=== PATIENT | female | born 1960 | race Caucasian/White ===

== ENCOUNTER 2021-12-16 05:37 | Outpatient (CLI) | payer BC ==
[~2021-12-16] VITALS: Ht 165.1 cm; Wt 86.2 kg
[~2021-12-16 05:37] MED LIST: CITRACAL; FEXO1TAB40 PO; LANS30CA43 PO; LEVO88TA54 PO; OMEG-160 PO; PREMARIN
== END 2021-12-16 11:16 | disposition home or self-care (01) ==
LOC: PREOP 05:37
PROVIDERS: ATTEND Surgery
DX: Z01.818 Encounter for other preprocedural examination (principal)

== ENCOUNTER 2021-12-23 09:10 | Day surgery (SDC) | payer BC ==
--- NOTE | 2021-12-16 16:08 | HISTORY AND PHYSICAL ---
DATE OF SERVICE: PROCEDURE DATE: 12/23/2021. ATTENDING PRIMARY CARE PHYSICIAN: Lona Palmer DO HISTORY: The patient is a 61-year-old female who is known to us in the past. She was seen in 07/2016 for a colonoscopy and at that time was found to have a stage I external and internal hemorrhoids as well as small proximal rectal polyp that was 2 mm in size and was biopsied and consistent with a hyperplastic polyp. The remainder of the colon was normal. She did have a colonoscopy in 2009 with two other benign polyps of the colon. On today's visit, she reports that she is again in need of a screening colonoscopy. Her last colonoscopy was 6 years ago and she denies any family history of any colon cancer as well as no blood in her stool. She denies any diarrhea or constipation as well as no abdominal pain, but does report a history of irritable bowel syndrome; however, this appears to be under control. MEDICAL HISTORY: Irritable bowel syndrome, anxiety, depression, gastroesophageal reflux disease, hypothyroidism. PAST SURGICAL HISTORY: Total hysterectomy 2003, laparoscopic cholecystectomy 2008, excision of the chest cyst 2007, pilonidal cystectomy in 1974, heel spur removed 2009, knee arthroscopy and repair of meniscus 2020. ALLERGIES: KETOCONAZOLE, PENICILLIN, TETRACYCLINE, SULFA, STATINS, GEMFIBROZIL. MEDICATIONS: Magnesium, Flonase, Melody, multivitamin, Citrucel, fish oil, probiotic, Protonix 40 mg daily, paroxetine 10 mg daily, levothyroxine 100 mcg daily, Premarin 0.625 mg. SOCIAL HISTORY: Previous for tobacco smoke, quit in 1978 for 1-pack-year. Social for alcohol. FAMILY HISTORY: Mother, lung cancer. Paternal grandfather, lung cancer. Brother, hypertension. VITAL SIGNS: Blood pressure is 124/85. Current weight is 194.5 pounds at 5 feet 5 inches. REVIEW OF SYSTEMS: This is a well-nourished female, in no acute distress. She is not experiencing any shortness of breath or difficulty breathing. No chest pain, palpitations or diaphoresis. No nausea, vomiting or abdominal pain. No diarrhea or constipation. No red blood per rectum. No dark tarry stools. No fever or chills. No recent inadvertent weight loss. All other review of systems negative. PHYSICAL EXAMINATION: CHEST: Clear. Good breath sounds bilaterally. HEART: Regular, no murmurs. EXTREMITIES: No lower extremity edema. Negative Homans sign. HEENT: No scleral icterus. NECK: No cervical lymphadenopathy. ABDOMEN: Soft, nontender, nondistended. SKIN: Warm, dry and pink. NEUROLOGIC: Awake, alert and oriented x3. ASSESSMENT AND PLAN: A 61-year-old female with a history of colon polyps, who is in need of a screening colonoscopy. The risks and benefits of the procedure as well as the procedure and home care instructions were explained to the patient. She verbalized understanding of instructions and agreed to proceed as planned. At this time, we will proceed with scheduling her for a screening colonoscopy. Job ID: [id number] DocumentID: [id number] Dictated Date: 12/15/2021 11:31:21 Confectionery Cooker Date: 12/15/2021 12:02:49 Dictated By: CAMMIE HAWTHORNE APRN
[~2021-12-23] VITALS: Ht 165.1 cm; Wt 86.2 kg
[2021-12-23] MEDS ORDERED: LACTATED RINGERS 1,000 ML IV STA (09:11)
[2021-12-23] MEDS ORDERED: LIDOCAINE JELLY 2% 6 ML SYRINGE MM PRN (09:15)
[2021-12-23] MEDS ORDERED: LACTATED RINGERS 1,000 ML IV ONE (09:15)
[2021-12-23 09:25] VITALS: BP 139/73
[2021-12-23] MEDS ORDERED: PROPOFOL INJECTION 50 ML IV ONE (09:55)
[2021-12-23] MEDS ORDERED: MIDAZOLAM 2 MG/2 ML (VERSED) VIAL ONE (09:55)
--- NOTE | 2021-12-23 10:36 | Progress Note-Pre Operative ---
Pre-Operative Progress Note H&P Reviewed The H&P was reviewed, patient examined and no changes noted. Date Seen by Provider: Dec 23, 2021 Time Seen by Provider: 10:00 Date H&P Reviewed: Dec 23, 2021 Time H&P Reviewed: 10:00 Pre-Operative Diagnosis: screening, hx polyp CESAR ALVAREZ MD Dec 23, 2021 10:36
--- NOTE | 2021-12-23 10:37 | Discharge Inst-Surgical ---
D/C Lap Instructions-ANTONIO Follow Up Activity as tolerated High Fiber Diet 25g or more per day Avoid Alcohol, Caffeine, Spicy [place] and Acid foods. Drink 64 fluid oz or more of fluids per day. Symptoms to Report: Fever over 101 degree F, Nausea/Vomiting If any problems/questions: Contact your physician or go to Emergency Room CESAR ALVAREZ MD Dec 23, 2021 10:37
[2021-12-23] MEDS ORDERED: ONDANSETRON 4 MG (ZOFRAN) ORAL DISSOLVE TAB PO PRN (10:45)
[2021-12-23] MEDS ORDERED: ONDANSETRON 4 MG/2 ML (SDV) Z0FRAN IVP PRN (10:45)
[2021-12-23 11:10] VITALS: BP 139/80
[2021-12-23 11:15] VITALS: BP 142/76
--- NOTE | 2021-12-23 11:15 | Anesthesia-General Post-Op ---
MAC Patient Condition Mental Status/LOC: Same as Preop Cardiovascular: Satisfactory Nausea/Vomiting: Absent Respiratory: Satisfactory Pain: Controlled Complications: Absent Post Op Complications Complications None Follow Up Care/Instructions Patient Instructions None needed. Anesthesiology Discharge Order Discharge Order Patient is doing well, no complaints, stable vital signs, no apparent adverse anesthesia problems. KT BRANNON DO Dec 23, 2021 11:15
--- NOTE | 2021-12-23 11:27 | Progress Note-Post Operative ---
Post-Operative Progess Note Surgeon (s)/Field Collector (s) Surgeon CESAR ALVAREZ MD Field Collector: none Pre-Operative Diagnosis screening, hx polyp Post-Operative Diagnosis mild chronic stage 2 ext and int hemorrhoids, small HP polyp sigmoid. Procedure & Operative Findings Date of Procedure 12/23/21 Procedure Performed/Findings colonoscopy with polypectomy with hot bx forcep Anesthesia Type mac Estimated Blood Loss Estimated blood loss (mL): minimal Specimens/Packing Specimens Removed sigmoid colon CESAR ALVAREZ MD Dec 23, 2021 11:27
[2021-12-23 11:40] VITALS: BP 130/60
[2021-12-23 11:50] VITALS: BP 130/60
--- NOTE | 2021-12-23 17:40 | OPERATIVE REPORT ---
DATE OF SERVICE: 12/23/2021 ATTENDING PRIMARY CARE PHYSICIAN: Lona Palmer DO PREOPERATIVE DIAGNOSIS: Screening colonoscopy with history of colon polyp. POSTOPERATIVE DIAGNOSES: Mild chronic stage II external and internal hemorrhoids, small hyperplastic polyp of the sigmoid colon 1 to 2 mm in size. PROCEDURE: Colonoscopy with polypectomy with hot biopsy forceps. SURGEON: Cesar Alvarez MD ANESTHESIA: Monitored anesthesia care. ESTIMATED BLOOD LOSS: Minimal. FINDINGS: Same as postoperative diagnoses. DISPOSITION: The patient tolerated the procedure well. INDICATIONS: The patient is a 61-year-old female referred over to us for a screening colonoscopy. We have done previous colonoscopy on her before in 2015. She was found to have a small rectal polyp 2 mm in size, which was consistent with a hyperplastic polyp. She states that she is otherwise doing well, does not report any major issues with red blood per rectum, diarrhea nor constipation as well as no red blood per rectum nor any dark tarry stools. She also does not report any family history of colon cancer. DESCRIPTION OF PROCEDURE: The patient was brought to the endoscopy suite, laid in left lateral decubitus position. After adequate IV pain and sedative medications and monitored anesthesia care, a digital rectal examination was performed. Mild chronic stage II external and internal hemorrhoids were identified, which were not actively edematous nor inflamed and no bleeding. Normal sphincter tone was felt and there were no palpable masses. The endoscope was then intubated into the anus and rectum gently insufflated. The endoscope was then advanced through the valves of Payne of the rectum with no polyps or any neoplasms identified. Through the sigmoid colon, a small hyperplastic polyp 1 to 2 mm in size was identified, which was biopsied and destroyed using forceps and electrocautery with visualization of good hemostasis. The endoscope was then advanced through the remainder of the descending, transverse and ascending colon to the cecum, which were normal. No other lesions identified. The endoscope was then slowly withdrawn while taking a second look and suctioning of residual air with no additional findings. The patient tolerated the procedure well. The polyp was small and likely consistent with a hyperplastic polyp and if she is asymptomatic, she does not need another colonoscopy in another 10 years. We will recommend a high fiber diet with at least 25 grams of fiber daily to promote soft stools on a daily basis. Job ID: [id number] DocumentID: [id number] Dictated Date: 12/23/2021 11:15:13 Iron Setter Date: 12/23/2021 17:40:30 Dictated By: CESAR ALVAREZ MD
== END 2021-12-23 11:50 | disposition home or self-care (01) ==
LOC: ENDO 09:10
PROVIDERS: ATTEND Surgery
DX: Z12.11 Encounter for screening for malignant neoplasm of colon (principal); K63.5 Polyp of colon; K64.1 Second degree hemorrhoids; K64.4 Residual hemorrhoidal skin tags; Z87.891 Personal history of nicotine dependence; Z80.1 Family history of malignant neoplasm of trachea, bronchus and lung

== ENCOUNTER 2022-04-15 18:58 | Emergency (ER) | payer BC ==
[~2022-04-15] VITALS: Ht 165 cm; Wt 81.6 kg
[2022-04-15 19:06] VITALS: BP 142/71
--- NOTE | 2022-04-15 19:12 | ED Upper Extremity ---
General Chief Complaint: Laceration Stated Complaint: HAND INJURY Source: patient Exam Limitations: no limitations (GLENROY ROMERO) History of Present Illness Date Seen by Provider: Apr 15, 2022 Time Seen by Provider: 19:10 Initial Comments Patient is a 61-year-old female presents ED with a laceration to her left palmar hand. This occurred 30 minutes ago. She states she was cutting avocado when her knife missed the fruit hitting her left palmar hand resulting in a 1 cm laceration. She reports significant bleeding. Controlled direct pressure. Not on blood thinners. Normal active range of motion of her left index and middle finger. Laceration between the second and third metacarpal. Patient is not up-to-date on her tetanus. (GLENROY ROMERO) Allergies and Home Medications Allergies Coded Allergies: Penicillins (Verified Allergy, Unknown, 06/24/15) Wppnwaq-ITV-QkM Reductase Inhibitor (Unverified Allergy, Unknown, 12/16/21) Sulfa (Sulfonamide Antibiotics) (Unverified Allergy, Unknown, 12/16/21) Tetracyclines (Unverified Allergy, Unknown, 12/16/21) gemfibrozil (Unverified Allergy, Unknown, 12/16/21) ketoconazole (Unverified Allergy, Unknown, 12/16/21) Patient Home Medication List Home Medication List Reviewed: Yes (GLENROY ROMERO) Fexofenadine/Pseudoephedrine (Melody-D 12 Hour Tablet) 1 Each Tab.er.12h, 1 EACH PO DAILY, (Reported) Entered as Reported by: KALINA WHITFIELD on 08/01/15957 Lansoprazole (Prevacid) 30 Mg Capsule.dr, 30 MG PO DAILY, (Reported) Entered as Reported by: KALINA WHITFIELD on 08/01/15957 Levothyroxine Sodium (Levothyroxine Sodium) 88 Mcg Tablet, 88 MCG PO DAILY, (Reported) Entered as Reported by: KALINA WHITFIELD on 08/01/15957 [place]-3/Dha/Epa/Fish Oil (Fish Oil 1,000 mg Softgel) 1 Each Capsule, 1 EACH PO HS, (Reported) Entered as Reported by: KALINA WHITFIELD on 08/01/15957 [Citracal] , (Reported) Entered as Reported by: KALINA WHITFIELD on 08/01/15957 [Premarin] , (Reported) Entered as Reported by: KALINA WHITFIELD on 08/01/15957 Review of Systems Constitutional: No chills, No diaphoresis, No malaise, No weakness EENTM: No blurred vision, No double vision Respiratory: No cough, No short of breath Cardiovascular: No chest pain, No edema, No palpitations Gastrointestinal: No abdominal pain, No diarrhea, No nausea, No vomiting Genitourinary: No decreased output, No discharge Musculoskeletal: No back pain, No joint pain; muscle pain Skin: change in color, other (laceration) (GLENROY ROMERO) All Other Systems Reviewed Negative Unless Noted: Yes (GLENROY ROMERO) Past Rnesmcd-Dkoaut-Spwbqh Hx Immunizations Up To Date Tetanus Booster (TDap): Unknown First/Initial COVID19 Vaccinat: DECEMBER 2020-REACTION Second COVID19 Vaccination Iam: NO Third COVID19 Vaccination Date: NO (GLENROY ROMERO) Seasonal Allergies Seasonal Allergies: Yes (GLENROY ROMERO) Past Medical History Surgeries: Yes Breast, Gallbladder, Hysterectomy Respiratory: No Cardiac: Yes High Cholesterol Neurological: No Reproductive Disorders: No 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 oz. 74.857901ud; 31.62 BMI Method: General Appearance: WD/WN, no apparent distress HEENT: PERRL/EOMI, normal ENT inspection, TMs normal, pharynx normal Neck: non-tender, full range of motion, supple, normal inspection Cardiovascular: regular rate, rhythm, no edema, no gallop, no JVD Respiratory: chest non-tender, lungs clear, normal breath sounds, no respiratory distress, no accessory muscle use Gastrointestinal: normal bowel sounds, non tender, soft, no organomegaly Back: normal inspection, no CVA tenderness Hand: laceration (1 cm laceration between the second and third metacarpal on the left palmar hand. Mild bleeding. Mild adipose involvement. 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, no motor/sensory deficits, alert, normal mood/affect, oriented x 3 Skin: other (1 cm laceration to left palmar hand.) (GLENROY ROMERO) Procedures/Interventions Wound Location: Upper Extremities Other Wound Location left hand Wound Length (cm): 1 Wound's Depth, Shape: superficial Wound Explored: clean Irrigated w/ Saline (ccs): 100 Betadine Prep?: Yes Anesthesia: 1% Lidocaine Volume Anesthetic (ccs): 2 Suture: Ethlion Suture Size: 4-0 Number of Sutures: 2 Layer Closure?: 1 Sterile Dressing Applied?: Yes (GLENROY ROMERO) Progress/Results/Core Measures Results/Orders Medications Given in ED Current Medications Medications Dose Ordered Sig/Faye Route Start Time Stop Time Status Last Admin Dose Admin Diphtheria/ Tetanus/Acell Pertussis 0.5 ml ONCE ONCE IM 04/15/22 19:15 04/15/22 19:16 DC 04/15/22 19:24 0.5 ML (JOSEFINA,JAIME K DO) Vital Signs/I&O 04/15/22 19:06 Temp 37.0 Pulse 73 Resp 16 B/P (MAP) 142/71 (94) Pulse Ox 96 O2 Delivery Room Air (JOSEFINA,JAIME K DO) Departure Communication (PCP) 1 cm laceration to left palmar hand. Subtle adipose involvement. Normal active range of motion of the digits without tendon, bone or muscular involvement. 2 Ethilon sutures were placed here in the ED. remove in 10 days. Discussed wound care with Neosporin and bandage. Recommend not saturating with water the hand to prevent sutures from pulling away from the repair site. Keep the area covered. Patient was given a tetanus shot. (GLENROY ROMERO) Impression Primary Impression: Hand laceration Disposition: 01 HOME, SELF-CARE Condition: Stable Departure-Patient Inst. Decision time for Depature: 19:28 (GLENROY ROMERO) Referrals: LU FUNES DO (PCP) Primary Care Physician Patient Instructions: Laceration Repair With Stitches ED Add. Discharge Instructions: Remove sutures in 10 days. Neosporin topical once or twice a day. Keep the area covered. Recommend not saturating in water. All discharge instructions reviewed with patient and/or family. Voiced unde rstanding. ATTENDING PHYSICIAN NOTE: I WAS PHYSICALLY PRESENT ER PHYSICIAN, BUT I WAS NOT INVOLVED IN ANY DECI GRACIELA MAKING OR ANY CARE OF THIS PATIENT. (JAIME ROCHA DO) GLENROY ROMERO Apr 15, 2022 19:12 JAIME ROCHA DO Apr 15, 2022 23:53
[2022-04-15] MEDS ORDERED: TETANUS,DIPTH,PERTUSS P/F (BOOSTRIX) 0.5 ML VIAL IM ONE (19:15)
== END 2022-04-15 19:36 | disposition home or self-care (01) ==
LOC: EDUNIT# 18:58 → ER 19:00
DX: S61.412A Laceration without foreign body of left hand, initial encounter (principal); Z23 Encounter for immunization; Z28.311 Partially vaccinated for COVID-19; W26.0XXA Contact with knife, initial encounter
CPT/HCPCS: 12001; 90471; 90715

== ENCOUNTER 2022-04-25 17:24 | Emergency (ER) | payer BC ==
[~2022-04-25] VITALS: Ht 165.1 cm; Wt 180.0 kg
[2022-04-25 17:30] VITALS: BP 127/67
== END 2022-04-25 17:38 | disposition home or self-care (01) ==
LOC: EDUNIT# 17:24 → ER 17:25
DX: Z48.02 Encounter for removal of sutures (principal); Z28.310 Unvaccinated for COVID-19